=== PATIENT | male | born 1990 | race Caucasian/White ===

== ENCOUNTER → 2023-07-19 | Outpatient (CLI) | payer OTHER | LOC: MHCPAIN 13:13 | DX: M47.897 Other spondylosis, lumbosacral region (principal); M54.16 Radiculopathy, lumbar region | CPT/HCPCS: G0463 ==

== ENCOUNTER → 2023-07-20 | Outpatient (CLI) | payer OTHER ==
[~2023-07-20] MED LIST: Iohexol 300 - 10 ML VIAL ONE; Lidocaine PF 2% (20 MG/ML) 2 ML VIAL ONE
== END ==
LOC: MHCPAIN 08:00
DX: M54.16 Radiculopathy, lumbar region (principal)
CPT/HCPCS: J1100; Q9967

== ENCOUNTER → 2023-10-12 | Outpatient (CLI) | payer OTHER ==
[~2023-10-12] MED LIST changes: -Iohexol 300 - 10 ML VIAL ONE; -Lidocaine PF 2% (20 MG/ML) 2 ML VIAL ONE; +Lidocaine PF 2% (20 MG/ML) 5 ML VIAL ONE; +Midazolam 2 MG/2 ML VIAL ONE; +fentaNYL 50 MCG/ML 2 ML VIAL ONE
== END ==
LOC: MHCPAIN 11:23
DX: M47.817 Spondylosis without myelopathy or radiculopathy, lumbosacral region (principal); M54.50 Low back pain, unspecified
CPT/HCPCS: J0665; J2250; J3010

== ENCOUNTER → 2023-12-15 | Outpatient (CLI) | payer OTHER | LOC: MHCPAIN 08:05 | DX: M51.26 Other intervertebral disc displacement, lumbar region (principal); M47.817 Spondylosis without myelopathy or radiculopathy, lumbosacral region | CPT/HCPCS: G0463 ==

== ENCOUNTER → 2024-01-08 | Outpatient (CLI) | payer OTHER ==
[~2024-01-08] MED LIST changes: +Iohexol 300 - 10 ML VIAL ONE; +Lidocaine PF 2% (20 MG/ML) 2 ML VIAL ONE; -Lidocaine PF 2% (20 MG/ML) 5 ML VIAL ONE; -Midazolam 2 MG/2 ML VIAL ONE; -fentaNYL 50 MCG/ML 2 ML VIAL ONE
== END ==
LOC: MHCPAIN 12:54
DX: M54.17 Radiculopathy, lumbosacral region (principal); M54.50 Low back pain, unspecified
CPT/HCPCS: J1100; Q9967

== ENCOUNTER → 2024-01-22 | Outpatient (CLI) | payer OTHER | LOC: MHCPAIN 13:15 | DX: M54.16 Radiculopathy, lumbar region (principal); M51.26 Other intervertebral disc displacement, lumbar region; M47.817 Spondylosis without myelopathy or radiculopathy, lumbosacral region | CPT/HCPCS: G0463 ==